=== PATIENT | female | born 1940 | race Caucasian/White ===

== ENCOUNTER 2017-08-13 15:32 | Emergency (ER) | payer OTHER ==
[~2017-08-13] VITALS: Ht 157.5 cm; Wt 78.0 kg
[~2017-08-13 15:32] MED LIST: B-12250 MCG; CINNAMON PLUS1 EACH; CITRACAL PLUS1 EAC1; ESTER-C 1,0001 EACH; FISH OIL 1,0001 EAC5; FLEXERIL PO; FOLTX1 TAB; FUROSEMIDE 40 M40 M1; GLUCOSAMINE CH1 EAC8; KLOR-CON 10 ER10 MEQ; KONSYL0.52 GM; LECITHIN; NEXIUM40 MG; NIACIN 500 MG500 M1; STOOL SOFTENER1 EAC1; STOOL SOFTENER50 MG; SUPER B COMPLE1 EAC2; TORADOL 10 MG T10 MG PO; VITAMIN D32000 UNI1; VITAMIN E1000 UNI3
[2017-08-13 16:30] LABS: URINE BILIRUBIN NEGATIVE (Negative); URINE BLOOD NEGATIVE (Negative); URINE CLARITY CLEAR; URINE COLOR YELLOW; URINE GLUCOSE-RANDOM NEGATIVE (Negative); URINE KETONES NEGATIVE (Negative); URINE LEUKOCYTES-REFLEX 1+ (Negative); URINE NITRITE-REFLEX NEGATIVE (Negative); URINE PROTEIN NEGATIVE (Negative); URINE SPECIFIC GRAVITY 1.015 (1.005-1.030); URINE UROBILINOGEN 0.2 E.U./dl (0.2-1.0)
[2017-08-13 16:49] LABS: CASTS None Seen /LPF (None Seen); CRYSTALS None Seen /LPF (None Seen); SQUAMOUS >10 Many /LPF (0-3); URINE RBC 0-2 Rare /HPF (0-2); URINE WBC-REFLEX 6-15 Few /HPF (0-5)
[2017-08-13 16:50] LABS: INFLUENZA A ANTIGEN None Detected (None Detect); INFLUENZA B ANTIGEN None Detected (None Detect)
[2017-08-13 16:58] LABS: HEMATOCRIT 42.3 % (37.0-47.0); HEMOGLOBIN 14.4 gm/dL (12.0-15.0); MCH 31.8 pg (26.0-34.0); MCHC 34.1 g/dL (28.0-37.0); MCV 93.4 fL (80.0-100.0); MPV 10.1 fl. (7.2-11.1); NUCLEATED RBCS 0 /100WBC; PLATELET COUNT* 205 thou/uL (150-400); RBC 4.53 mil/uL (4.20-5.00); RDW-CV 14.4 % (10.5-14.5); WBC 11.9 thou/uL (4.0-11.0)
[2017-08-13 17:15] LABS: ABSOLUTE BASOPHILS 0.1 thou/uL (0.0-0.2); ABSOLUTE EOSINOPHILS 0.2 thou/uL (0.0-0.7); ABSOLUTE MONOCYTES 0.7 thou/uL (0.0-1.2); ABSOLUTE NEUTROPHILS 9.9 thou/uL (1.6-8.1); PLATELET ESTIMATE ADEQUATE
[2017-08-13 17:35] LABS: CALCIUM 8.5 mg/dL (8.5-10.1); CREATININE 0.8 mg/dL (0.6-1.3)
[2017-08-13 17:40] LABS: ALBUMIN 3.5 g/dL (3.4-5.0); TOTAL BILIRUBIN 0.6 mg/dL (<0.1-1.0); TOTAL PROTEIN 6.9 g/dL (6.4-8.2)
[2017-08-13] MEDS ORDERED: PROAIR HFA8.5 GM INH (17:50)
[2017-08-13] MEDS ORDERED: KEFLEX500 M1 PO (17:50)
[2017-08-13] MEDS ORDERED: ACETAMINOPHEN-1 EAC1 PO (17:51)
[2017-08-13] MEDS ORDERED: PROMETHAZINE V473 ML PO (17:52)
[2017-08-13 18:22] VITALS: BP 133/77
== END 2017-08-13 18:27 | disposition home or self-care (01) ==
LOC: M.ERS 15:32
PROVIDERS: Physician Assistant
DX: J20.9 Acute bronchitis, unspecified (principal); N39.0 Urinary tract infection, site not specified; K21.9 Gastro-esophageal reflux disease without esophagitis; Z90.710 Acquired absence of both cervix and uterus; M06.9 Rheumatoid arthritis, unspecified; Z98.890 Other specified postprocedural states

== ENCOUNTER 2019-06-09 09:11 | Emergency (ER) | payer OTHER ==
[~2019-06-09] VITALS: Ht 157.5 cm; Wt 77.1 kg
[~2019-06-09 09:11] MED LIST changes: +ACETAMINOPHEN-1 EAC1 PO; +B-COMPLEX PLUS1 EACH PO; +COLLAGEN HYDROLY1 GM PO; +ESTER-C 1,0001 EACH PO; +FOLIC ACID1 MG PO; +IPRATROPIUM BRO15 ML NASAL; +JOINT SUPPORT1 EACH PO; +KEFLEX500 M1 PO; +LASIX 40 MG TAB40 M2 PO; +LECITHIN1200 M1 PO; +METHOTREXATE 22.5 MG PO; +POTASSIUM CHLO10 ME1 PO; +PROAIR HFA8.5 GM INH; +PROBIOTIC1 EAC1 PO; +PROMETHAZINE V473 ML PO; +PROTONIX40 M4 PO; +TUMERSAID TABL1 EACH PO; +VITAMIN D35000 UNIT PO; +VITAMIN E1000 UNI3 PO; +ZETIA10 MG PO
[2019-06-09] MEDS ORDERED: MOBIC7.5 MG PO (09:28)
[2019-06-09] MEDS ORDERED: PREDNISONE DROPS (09:29)
[2019-06-09] MEDS ORDERED: ULTRAM 50MG TAB50 MG PO (10:20)
[2019-06-09] MEDS ORDERED: DIAZEPAM 5 MG5 MG PO (10:20)
[2019-06-09 10:43] VITALS: BP 114/64
== END 2019-06-09 10:44 | disposition home or self-care (01) ==
LOC: M.ERS 09:11
DX: S42.032A Displaced fracture of lateral end of left clavicle, initial encounter for closed fracture (principal); K21.9 Gastro-esophageal reflux disease without esophagitis; M06.9 Rheumatoid arthritis, unspecified; Z90.49 Acquired absence of other specified parts of digestive tract; Z98.51 Tubal ligation status; Z90.710 Acquired absence of both cervix and uterus; Z87.891 Personal history of nicotine dependence; W18.39XA Other fall on same level, initial encounter; Y93.89 Activity, other specified; Y92.89 Other specified places as the place of occurrence of the external cause; Y99.8 Other external cause status

== ENCOUNTER 2020-12-14 19:55 | Emergency (ER) | payer OTHER ==
[~2020-12-14] VITALS: Ht 160 cm; Wt 65.8 kg
[~2020-12-14 19:55] MED LIST changes: +DIAZEPAM 5 MG5 MG PO; +MOBIC7.5 MG PO; +PREDNISONE DROPS; +ULTRAM 50MG TAB50 MG PO
[2020-12-14] MEDS ORDERED: LEUCOVORIN CALC10 MG PO (20:40)
[2020-12-14] MEDS ORDERED: CLONAZEPAM 0.50.5 M1 PO (20:41)
[2020-12-14] MEDS ORDERED: ESTER-C 1,0001 EACH PO (20:42)
[2020-12-14] MEDS ORDERED: FISH OIL 1,0001 EAC9 PO (20:42)
[2020-12-14] MEDS ORDERED: OCUVITE ADULT1 EAC1 PO (20:43)
[2020-12-14] MEDS ORDERED: KRILL OIL500 MG PO (20:43)
[2020-12-14] MEDS ORDERED: TURMERIC500 M2 PO (20:44)
[2020-12-14] MEDS ORDERED: MAGNESIUM250 M1 PO (20:44)
[2020-12-14] MEDS ORDERED: METAMUCIL0.4 GM PO (20:45)
[2020-12-14] MEDS ORDERED: MELATONIN10 M3 PO (20:45)
[2020-12-14 21:11] LABS: ABSOLUTE LYMPHOCYTES 1.1 thou/uL (0.8-5.3); ABSOLUTE MONOCYTES 0.7 thou/uL (0.0-1.2); ABSOLUTE NEUTROPHILS 7.6 thou/uL (1.6-8.1); BASOPHILS 0.5 %; EOSINOPHILS 0.1 %; HEMATOCRIT 47.4 % (37.0-47.0); MCH 31.7 pg (26.0-34.0); MCHC 33.7 g/dL (28.0-37.0); MCV 94.1 fL (80.0-100.0); MONOCYTES 7.1 %; MPV 8.6 fl. (7.2-11.1); NUCLEATED RBCS 0 /100WBC; PLATELET COUNT* 265 thou/uL (150-400); POLYS 80.3 %; RBC 5.04 mil/uL (4.20-5.00); RDW-CV 14.1 % (10.5-14.5); WBC 9.5 thou/uL (4.0-11.0)
[2020-12-14 21:21] LABS: CALCIUM 9.5 mg/dL (8.5-10.1); CREATININE 0.8 mg/dL (0.6-1.3); POTASSIUM 3.5 mmol/L (3.5-5.1); PROTIME 10.2 Seconds (9.20-11.50)
[2020-12-14 21:31] LABS: ALBUMIN 4.2 g/dL (3.4-5.0); MAGNESIUM 2.4 mg/dL (1.8-2.4); TOTAL PROTEIN 8.3 g/dL (6.4-8.2)
[2020-12-14] MEDS ORDERED: ZOFRAN ODT4 MG PO (23:07)
[2020-12-14] MEDS ORDERED: MOTION RELIEF25 MG PO (23:07)
[2020-12-14] MEDS ORDERED: FLEXERIL PO (23:07)
[2020-12-14 23:20] VITALS: BP 146/74
--- NOTE | 2020-12-15 10:51 | EKG ---
[place] [address] ELECTROCARDIOGRAM REPORT Name: ALYSSA CHRISTOPHER Room: [facility]#: [id number] Admission: 12/14/20 Attend Phys: Discharge: 12/14/20 Date of : 42 Date of Service: 12/14/202036 Report #: [id number] THIS REPORT FOR: //name// [facility] ED Test Date: 2020-12-14 Test Time: 20:37:00 Pat Name: ALYSSA CHRISTOPHER Department: Room: Gender: F [employer]er: [place] : 1940 Requested By: Rosa Lyon Order Number: [id number] Mindi MD: Santhosh Menjivar Measurements Intervals [place] Rate: 89 P: 76 MN: 214 QRS: 22 QRSD: 90 T: 61 QT: 354 QTc: 431 Interpretive Statements Sinus rhythm Borderline prolonged MN interval Left atrial enlargement Abnormal R-wave progression, early transition No previous ECG available for comparison Electronically Signed On 12-15-2020 10:51:28 CDT by Santhosh Menjivar [email or web address] <ELECTRONICALLY SIGNED> By: Santhosh Menjivar MD, [facility] 12/15/20 1051 36 36 Santhosh Menjivar MD, [facility] /EPI
== END 2020-12-14 23:22 | disposition home or self-care (01) ==
LOC: M.ERS 19:55
PROVIDERS: Emergency Medicine
DX: R42 Dizziness and giddiness (principal); Z20.822 Contact with and (suspected) exposure to COVID-19; R11.2 Nausea with vomiting, unspecified; M06.9 Rheumatoid arthritis, unspecified; K21.9 Gastro-esophageal reflux disease without esophagitis; Z87.891 Personal history of nicotine dependence; Z79.899 Other long term (current) drug therapy; Z90.49 Acquired absence of other specified parts of digestive tract; Z98.51 Tubal ligation status; Z90.710 Acquired absence of both cervix and uterus; Z98.890 Other specified postprocedural states